=== PATIENT | male | born 1930 | race Caucasian/White ===

== ENCOUNTER 2019-04-01 09:28 | Emergency (ER) | payer MEDICARE, BC ==
--- NOTE | 2019-04-01 09:49 | EDM.PDOC ---
ED HPI GENERAL MEDICAL PROBLEM - General Chief Complaint: Cardiovascular Problem Stated Complaint: CAME FROM [facility] Time Seen by Provider: 04/01/19 09:30 Source of Information: Reports: Patient, RN History Limitations: Reports: No Limitations - History of Present Illness INITIAL COMMENTS - FREE TEXT/NARRATIVE: 88-year-old male who recently returned from his winter home went to cardiac rehabilitation for the first time and was found to have frequent PVCs, bigeminy , and numerous ectopic beats. He is asymptomatic. It is unknown how long these rhythms have been occurring. He had an angiogram in October with some atrial fibrillation around his procedure. He does have increased shortness of breath with activity over the past several months. In cardiac rehabilitation when his arrhythmias were seen, internal medicine at the clinic was contacted and they were informed to send him to the emergency room. He was seen at the clinic within the last 2 weeks with a cough and started on antibiotics. Onset: Unknown/Unsure Associated Symptoms: Reports: No Other Symptoms Denies Pain Score (Numeric/FACES): 0 - Related Data Allergies Allergy/AdvReac Type Severity Reaction Status Date / Time No Known Allergies Allergy Verified 04/01/19 09:35 Home Meds: Home Meds Ascorbic Acid 500 mg PO DAILY 07/31/13 [History] Aspirin [Ecotrin] 81 mg PO BEDTIME 07/31/13 [History] Doxazosin Mesylate [Cardura Xl] 4 mg PO BEDTIME 07/31/13 [History] Dutasteride [Avodart] 0.5 mg PO DAILY 07/31/13 [History] Famotidine [Pepcid] 40 mg PO DAILY 07/31/13 [History] Levothyroxine Sodium [Tirosint] 25 mcg PO DAILY 07/31/13 [History] atorvaSTATin [Lipitor] 20 mg PO BEDTIME 07/31/13 [History] Brimonidine [Alphagan P 0.1% Ophth Soln] 1 drop EYEBOTH TID 10/22/14 [History] Brinzolamide [Azopt 1% Ophth Susp] 1 drop EYEBOTH TID 10/22/14 [History] Clopidogrel Bisulfate [Clopidogrel] 75 mg PO DAILY 11/12/18 [History] Furosemide [Lasix] 20 mg PO DAILY 11/12/18 [History] Glimepiride [Amaryl] 2 mg PO DAILY 11/12/18 [History] Isosorbide Mononitrate [Isosorbide Mononitrate ER] 60 mg PO BID 11/12/18 [ History] Ranolazine [Ranexa] 500 mg PO BID 11/12/18 [History] metFORMIN HCl [Metformin HCl] 500 mg PO TID 11/12/18 [History] Metoprolol Tartrate 50 mg PO BID 04/01/19 [History] Past Medical History HEENT History: Reports: Cataract, Glaucoma Cardiovascular History: Reports: Afib, Bypass, CAD, Heart Failure, Heart Murmur , High Cholesterol, Hypertension, Stents, Other (See Below) Other Cardiovascular History: CABG x6. angio with ballon Angiogram Oct 2018. Blockage found. Is being treated by drugs. Gastrointestinal History: Reports: GERD Musculoskeletal History: Reports: Arthritis, Back Pain, Chronic Endocrine/Metabolic History: Reports: Diabetes, Type II, Hypothyroidism - Infectious Disease History Infectious Disease History: Reports: Chicken Pox, Mumps - Past Surgical History HEENT Surgical History: Reports: Cataract Surgery Cardiovascular Surgical History: Reports: Coronary Artery Bypass, Coronary Artery Stent, Percutaneous Transluminal Angioplasty Musculoskeletal Surgical History: Reports: Knee Replacement Social & Family History - Tobacco Use Smoking Status *Q: Never Smoker Second Hand Smoke Exposure: No - Caffeine Use Caffeine Use: Reports: None - Alcohol Use Days Per Week of Alcohol Use: 0 - Recreational Drug Use Recreational Drug Use: No ED ROS GENERAL - Review of Systems Review Of Systems: See Below Constitutional: Denies: Fever, Chills HEENT: Reports: No Symptoms Respiratory: Reports: Shortness of Breath (With activity), Cough (Recent cough is improving) GI/Abdominal: Denies: Nausea, Vomiting Skin: Denies: Rash Neurological: Reports: Weakness. Denies: Headache Psychiatric: Reports: No Symptoms ED EXAM, GENERAL - Physical Exam Exam: See Below Exam Limited By: No Limitations General Appearance: Alert, No Apparent Distress Eye Exam: Bilateral Eye: EOMI Head: Atraumatic Neck: Supple Respiratory/Chest: No Respiratory Distress, Lungs Clear Cardiovascular: Irregularly Irregular (Patient has so many ectopic beats that his heart sounds are irregular) GI/Abdominal: Non-Tender Extremities: No: Pedal Edema Skin Exam: Warm, Dry Course - Vital Signs Last Recorded V/S: Last Vital Signs Temp 97.6 F 04/01/19 09:33 Pulse 71 04/01/19 10:49 Resp 20 04/01/19 10:49 BP 150/49 H 04/01/19 10:49 Pulse Ox 96 04/01/19 10:49 - Orders/Labs/Meds Labs: Laboratory Tests 04/01/19 04/01/19 Range/Units 09:49 09:49 WBC 7.8 (4.5-11.0) K/uL RBC 3.66 L (4.30-5.90) M/uL Hgb 11.7 L (12.0-15.0) g/dL Hct 36.1 L (40.0-54.0) % MCV 99 H (80-98) fL MCH 32 H (27-31) pg MCHC 32 (32-36) % Plt Count 260 (150-400) K/uL Neut % (Auto) 62 (36-66) % Lymph % (Auto) 18 L (24-44) % [place] % (Auto) 17 H (2-6) % Eos % (Auto) 3 (2-4) % Baso % (Auto) 0 (0-1) % Sodium 134 L (140-148) mmol/L Potassium 5.0 (3.6-5.2) mmol/L Chloride 98 L (100-108) mmol/L Carbon Dioxide 30 (21-32) mmol/L Anion Gap 11.0 (5.0-14.0) mmol/L BUN 15 (7-18) mg/dL Creatinine 1.1 (0.8-1.3) mg/dL Est Cr Clr Drug Dosing 47.31 mL/min Estimated GFR (MDRD) > 60 (>60) Glucose 211 H (74-106) mg/dL Calcium 9.1 (8.5-10.1) mg/dL Total Bilirubin 0.4 (0.2-1.0) mg/dL AST 17 (15-37) U/L ALT 22 (12-78) U/L Alkaline Phosphatase 64 (46-116) U/L Troponin I 0.021 (0.000-0.056) ng/mL Total Protein 6.4 (6.4-8.2) g/dL Albumin 3.4 (3.4-5.0) g/dL Globulin 3.0 (2.3-3.5) g/dL Albumin/Globulin Ratio 1.1 L (1.2-2.2) - Re-Assessments/Exams Free Text/Narrative Re-Assessment/Exam: 04/01/19 09:48 Patient was kept on cardiac monitoring, a CBC CMP and troponin were obtained as well as a portable chest x-ray. 04/01/19 10:11 Portable chest x-ray shows an elevated right diaphragm which is chronic, no significant infiltrate or effusions. CBC is normal. 04/01/19 10:54 CMP and troponin are also reassuring. He continued to be in bigeminy, I discussed this with cardiology in [place]. The reviewed his previous records including an echocardiogram which showed an ejection fraction of roughly 50%. They recommended having the patient see his primary provider to be started on beta blockers and arrange a Holter monitor prior to any further cardiac rehabilitation. 04/01/19 11:13 Discussed cardiology recommendations with Dr. Ríos, he will recheck with the patient tomorrow at 1:30 in the clinic for reevaluation and discussing medication changes and further evaluation. Departure - Departure Time of Disposition: 11:41 Disposition: Home, Self-Care 01 Condition: Good Clinical Impression: Ventricular bigeminy Instructions: Premature Ventricular Contraction Referrals: PCP,None [Primary Care Provider] - Forms: ED Department Discharge Care Plan Goals: Continue your current medications and recheck with Dr. Ríos in the clinic tomorrow at 1:30 in the afternoon. Return to the emergency room if you develop more symptoms such as increased chest pain or shortness of breath.
--- NOTE | 2019-04-01 10:41 | CRLCR ---
INDICATION : Dyspnea with exertion. Numerous premature ventricular contractions. TECHNIQUE: AP portable chest. COMPARISON: August 26, 2015. FINDINGS: Sternotomy. Normal heart size. No evidence for congestive heart failure. Eventration or elevation of the right hemidiaphragm unchanged. There is volume loss within the left hemithorax. This could be on a postsurgical basis. There is pleural thickening and opacification at the left lung apex. Please correlate for any history of a left-sided thoracotomy. IMPRESSION: 1. Chronic changes left hemithorax. 2. Sternotomy. 3. No acute cardiopulmonary process identified. Dictated by Raul Francis MD @ Apr 01 2019 10:29AM Signed by Dr. Raul Francis @ Apr 01 2019 10:39AM
== END 2019-04-01 11:41 | disposition home or self-care (01) ==
LOC: JP.ED 09:28
DX: I49.8 Other specified cardiac arrhythmias (principal); I48.91 Unspecified atrial fibrillation; I11.0 Hypertensive heart disease with heart failure; I50.9 Heart failure, unspecified; K21.9 Gastro-esophageal reflux disease without esophagitis; E11.9 Type 2 diabetes mellitus without complications; E03.9 Hypothyroidism, unspecified; I25.10 Atherosclerotic heart disease of native coronary artery without angina pectoris; Z79.84 Long term (current) use of oral hypoglycemic drugs; Z95.1 Presence of aortocoronary bypass graft; Z79.82 Long term (current) use of aspirin; Z79.899 Other long term (current) drug therapy
CPT/HCPCS: 36415; 71045; 80053; 84484; 85025; 99285-25

== ENCOUNTER 2021-06-30 07:24 | Day surgery (SDC) | payer MEDICARE, BC ==
[2021-06-30] MEDS ORDERED: Propofol 200 MG/20 ML SDV ONE (07:34)
[2021-06-30] MEDS ORDERED: fentaNYL 100 MCG/2 ML SDV ONE (07:34)
[2021-06-30] MEDS ORDERED: Dextrose 5%-Lactated Ringers 1,000 ML IV SCH (08:00)
[2021-06-30] MEDS ORDERED: Pantoprazole 40 MG Vial IVPUSH ONE (09:58)
--- NOTE | 2021-07-11 13:50 | OR ---
DATE OF PROCEDURE: 06/30/2021 SURGEON: Iraj Stone MD PREOPERATIVE DIAGNOSIS: Anemia. POSTOPERATIVE DIAGNOSES: 1. Anemia associated with mild erosive gastritis and proximal duodenitis without evidence of active bleeding. 2. Large hiatal hernia without significant esophageal inflammation. OPERATIVE PROCEDURE: Esophagogastroduodenoscopy with antral biopsies for CLOtest. ANESTHESIA: IV sedation. INDICATIONS FOR PROCEDURE: This is an 89-year-old male presenting with anemia, he is referred for upper endoscopy for evaluation of possible upper GI bleeding sites. Potential risks of the procedure including bleeding and perforation were discussed, and the patient wishes to proceed. DETAILS OF PROCEDURE: The patient was taken to the operating room and placed in a left lateral decubitus position. IV sedation was administered, after which the upper GI endoscope was passed orally through the length of the esophagus into the stomach with retroflexion view of the fundus, and thereafter, through the pyloric channel into the junction of the third and fourth portions of the duodenum. Findings included normal hypopharynx, larynx, upper esophageal sphincter, and esophageal body. The patient did have a large hiatal hernia measuring around 5 cm, but this was not associated with any significant esophageal inflammation or stricturing. The scope was then passed into the stomach. Within the antrum, there was some diffuse reddened areas with some tiny erosions present. These were presently appearing to heal. The duodenal bulb likewise had some redness without erosions, and the remainder of the duodenum was unremarkable. At this point, biopsy was obtained from the antrum and sent for CLOtest for H pylori. Minimal bleeding from the biopsy sites was seen and the procedure then concluded. Additionally, he will be given Protonix 40 mg IV in the recovery room and then 40 mg daily, and follow up with Dr. Ríos or Internal Medicine staff in roughly 3 weeks. Iraj Stone MD /[id number]
== END 2021-06-30 11:40 | disposition home or self-care (01) ==
LOC: JP.SDS 07:24
PROVIDERS: ATTEND Surgery
DX: K29.90 Gastroduodenitis, unspecified, without bleeding (principal); D64.9 Anemia, unspecified; K21.00 Gastro-esophageal reflux disease with esophagitis, without bleeding; K25.9 Gastric ulcer, unspecified as acute or chronic, without hemorrhage or perforation; K44.9 Diaphragmatic hernia without obstruction or gangrene; I11.0 Hypertensive heart disease with heart failure; I50.9 Heart failure, unspecified; I25.10 Atherosclerotic heart disease of native coronary artery without angina pectoris; E11.9 Type 2 diabetes mellitus without complications; Z95.1 Presence of aortocoronary bypass graft; E78.00 Pure hypercholesterolemia, unspecified; E03.9 Hypothyroidism, unspecified
CPT/HCPCS: 43239; 87081; C9113; J2704; J3010; J7121